=== PATIENT | female | born 1995 | race Two or more races ===

== ENCOUNTER 2018-03-31 09:54 | Emergency (ER) | payer SELFPAY ==
[2018-03-31 10:00] VITALS: BP 122/70
--- NOTE | 2018-03-31 10:43 | ER Document Report ---
ED Eye Complaint - General Chief Complaint: Redness of Eye Stated Complaint: EYE IRRITATION Time Seen by Provider: 03/31/18 10:01 Mode of Arrival: Ambulatory Information source: Patient Notes: Patient is a 23-year-old female comes in emergency room complaining of left eye tearing swelling of the upper lid. Patient states it started 4 days ago the first day she thought she had just pinkeye the second day the lid started to swell and turn red and third day the swelling got more prominent and this morning when she woke up the eye was swollen it closed shut and matted together. Had a yellowish discharge to that that time. Currently there is a clear discharge coming out of the eye. She denies any visual changes she denies any other medical problems her last menstrual period was a month ago when she is on the IUD. She smokes cigarettes occasionally. TRAVEL OUTSIDE OF THE [place] IN LAST 30 DAYS: No - HPI Onset: Other - 4 days ago Eye location: Left Injury: No Occurred at: Home Severity: Moderate Pain Level: 3 Associated symptoms: Itching, Pain, Redness, Matting, Eyelid swelling. denies: Photophobia, Foreign body sensation, Blurred vision, Double vision, Decreased vision, Loss of vision - Related Data Allergies/Adverse Reactions: No Known Allergies Allergy (Unverified 03/31/18 09:56) Past Medical History - General Information source: Patient - Social History Smoking Status: Current Some Day Smoker Cigarette use (# per day): Yes - They Chew tobacco use (# tins/day): No Smoking Education Provided: Yes Frequency of alcohol use: None Drug Abuse: None Lives with: Family Family History: Reviewed & Not Pertinent Patient has suicidal ideation: No Patient has homicidal ideation: No Renal/ Medical History: Denies: Hx Peritoneal Dialysis Review of Systems - Review of Systems Constitutional: No symptoms reported EENT: Eye pain, Eye discharge Cardiovascular: No symptoms reported Respiratory: No symptoms reported Gastrointestinal: No symptoms reported Genitourinary: No symptoms reported Female Genitourinary: No symptoms reported Musculoskeletal: No symptoms reported Skin: No symptoms reported Hematologic/Lymphatic: No symptoms reported Neurological/Psychological: No symptoms reported -: Yes All other systems reviewed and negative Physical Exam - Vital signs Vitals: Temp Pulse Resp BP Pulse Ox 98.9 F 90 20 122/70 97 03/31/18 09:59 03/31/18 09:59 10/25/18 09:59 03/31/18 09:59 03/31/18 09:59 Interpretation: Normal - Notes Notes: PHYSICAL EXAMINATION: GENERAL: Well-appearing, well-nourished and in no acute distress. HEAD: Atraumatic, normocephalic. EYES: Pupils are equal and reactive to light. Further examination shows patient has left upper lid swelling with matting noted on the upper eyelashes. There is also a cellulitis extension of the skin into the bridge of the nose and into the medial canthus area as well. Also extends onto the lateral canthus side where there is just some minor erythema noted approximately 1/4 inch from the lid margin. The lower eye lid is slightly swollen as well. And there is matting noted on the eyelashes of the lower lid. Examination of the conjunctiva shows it to be moderately injected and there is a clear teary kind of discharge coming from the medial canthus on the left eye. Patient's visual acuity is 20/20 in each eye and together. ENT: Nares patent, oropharynx clear without exudates. Moist mucous membranes. NECK: Normal range of motion, supple without lymphadenopathy LUNGS: Breath sounds clear to auscultation bilaterally and equal. No wheezes rales or rhonchi. HEART: Regular rate and rhythm without murmurs ABDOMEN: Soft, nontender, nondistended abdomen. No guarding, no rebound. No masses appreciated. Female : deferred Musculoskeletal: Normal range of motion, no pitting or edema. No cyanosis. NEUROLOGICAL: Cranial nerves grossly intact. Normal speech, normal gait. Normal sensory, motor exams PSYCH: Normal mood, normal affect. SKIN: Warm, Dry, normal turgor, no rashes or lesions noted. Course - Re-evaluation Re-evalutation: 03/31/18 10:43 Patient has no visual problems whatsoever. It appears this is going to be a blepharitis with a cellulitis extension surrounding the upper eyelid and minimally into the surrounding tissue of the bridge of the nose and extension on the medial canthus as well. There is minimal cellulitis on the lower lid or extension from it. The conjunctivae are injected and I believe this would be the second process going on with a bacterial conjunctivitis so we will be treating with an oral antibiotic as well as a ointment. Will probably use erythromycin ointment applied 4 times a day. We will also place her on Bactrim and Diflucan. - Vital Signs Vital signs: Temp Pulse Resp BP Pulse Ox 98.9 F 90 20 122/70 97 03/31/18 09:59 03/31/18 09:59 03/31/18 09:59 03/31/18 09:59 03/31/18 09:59 Discharge - Discharge Clinical Impression: Conjunctivitis Qualifiers: Conjunctivitis type: acute Acute conjunctivitis type: bacterial Laterality: left Qualified Code(s): H10.32 - Unspecified acute conjunctivitis, left eye Blepharitis of eyelid of left eye Qualifiers: Blepharitis type: unspecified type Eyelid: upper Qualified Code(s): H01.004 - Unspecified blepharitis left upper eyelid Disposition: HOME, SELF-CARE Instructions: Antibiotic Therapy ([facility]), Conjunctivitis, Allergic Additional Instructions: Use warm moist compresses 3 or 4 times a day. This is simply a rag warmed up in the sink is warm as you can stand it without burning herself. Applied to the area until it cools down. Then apply your antibiotic ointment. Take all of your oral antibiotics and return to ER for any concerns or problems. Prescriptions: Fluconazole [Diflucan] 150 mg PO ONCE PRN #1 tablet PRN Reason: Sulfamethoxazole/Trimethoprim [Bactrim Ds Tablet] 1 each PO BID #14 tablet Referrals: HARMONY POZO DO [ACTIVE STAFF] - Follow up as needed
[2018-03-31] MEDS ORDERED: ERYTHROMYCIN 0.5% OPH OINTMENT 3.5 GM (ER DISP) OD STA (10:45)
== END 2018-03-31 11:04 | disposition home or self-care (01) ==
LOC: ER 09:54
DX: H10.32 Unspecified acute conjunctivitis, left eye (principal); H01.004 Unspecified blepharitis left upper eyelid; F17.200 Nicotine dependence, unspecified, uncomplicated
CPT/HCPCS: 99282

== ENCOUNTER 2018-07-01 05:24 | Day surgery (SDC) | payer OTHER ==
[2018-06-29 11:30] LABS: HEMATOCRIT 37.8 % (36.0-47.0); HEMOGLOBIN 13.1 g/dL (12.0-15.5); MEAN CORPUSCULAR HEMOGLOBIN 30.1 pg (27.0-33.4); MEAN CORPUSCULAR HGB CONC 34.6 g/dL (32.0-36.0); MEAN CORPUSCULAR VOLUME 87 fl (80-97); PLATELET COUNT 303 10^3/uL (150-450); RED BLOOD COUNT 4.34 10^6/uL (3.72-5.28); RED CELL DISTRIBUTION WIDTH 13.2 % (11.5-14.0)
[2018-06-29 11:34] LABS: APPEARANCE,URINE CLEAR; BILIRUBIN,URINE NEGATIVE (NEGATIVE); COLOR,URINE YELLOW; GLUCOSE, URINE NEGATIVE (NEGATIVE); KETONES,URINE NEGATIVE (NEGATIVE); LEUKOCYTE ESTERASE,URINE NEGATIVE (NEGATIVE); NITRITE,URINE NEGATIVE (NEGATIVE); PROTEIN,URINE NEGATIVE (NEGATIVE); UROBILINOGEN,URINE NEGATIVE mg/dL (<2.0)
[2018-06-29 11:57] LABS: ANION GAP 8 (5-19); BLOOD UREA NITROGEN 15 mg/dL (7-20); CALCIUM 9.7 mg/dL (8.4-10.2); CARBON DIOXIDE 28 mmol/L (22-30); CHLORIDE 103 mmol/L (98-107); GLUCOSE 98 mg/dL (75-110); POTASSIUM 4.3 mmol/L (3.6-5.0); SODIUM 138.8 mmol/L (137-145)
[~2018-07-01 05:24] MED LIST: ACETAMINOPHEN 1,000 MG/100 ML RTUPB IV ONE; CEFAZOLIN 1 GM/D5W RTU 1 GM/50 ML RTUPB IV PRN; FENTANYL CITRATE INJ/PF 100 MCG/2 ML AMPUL ONE; LACTATED RINGERS 1000 ML IV PRN; LIDOCAINE 0.5% INJ-PF (5 MG/ML) 50 ML SDV SUBCUT PRN; LIDOCAINE 2% INJ-PF (20 MG/ML) 10 ML AMPUL ONE; MIDAZOLAM 2 MG/2 ML INJ ONE; ONDANSETRON HCL INJ/PF 4 MG/2 ML SDV ONE; PROPOFOL INJ 200 MG/20 ML VIAL IV ONE
[2018-07-01] MEDS ORDERED: CEFAZOLIN 1 GM/D5W RTU 1 GM/50 ML RTUPB IV ONE (05:33)
[2018-07-01] MEDS ORDERED: FENTANYL CITRATE INJ/PF 100 MCG/2 ML AMPUL IV PRN ×3 (07:30)
[2018-07-01] MEDS ORDERED: MEPERIDINE HCL/PF INJ 25 MG/1 ML DISP.SYRIN IV PRN (07:30)
[2018-07-01] MEDS ORDERED: ONDANSETRON HCL INJ/PF 4 MG/2 ML SDV IV PRN (07:30)
[2018-07-01] MEDS ORDERED: DIPHENHYDRAMINE HCL 50 MG/ML VIAL IV PRN (07:30)
[2018-07-01] MEDS ORDERED: OXYCODONE-ACETAMINOPHEN 5-325 MG TABLET PO PRN ×3 (07:30→08:52)
[2018-07-01] MEDS ORDERED: PROMETHAZINE HCL INJ 25 MG/1 ML VIAL IV PRN ×2 (07:30)
[2018-07-01] MEDS: FENTANYL CITRATE INJ/PF 100 MCG/2 ML AMPUL ONE ×2 (07:51→07:53)
[2018-07-01] MEDS ORDERED: LIDOCAINE 1% INJ-PF (10 MG/ML) 30 ML SDV ONE (08:07)
[2018-07-01] MEDS ORDERED: OXYCODONE-ACETAMINOPHEN 5-325 MG TABLET ONE (08:27)
--- NOTE | 2018-07-01 08:42 | OPERATIVE REPORT E ---
Operative Report NAME: AMARI KRISHNAMURTHY : 1995 AGE: 23Y DATE OF SURGERY: 07/01/2018 ROOM: PREOPERATIVE DIAGNOSIS: Imbedded IUD. POSTOPERATIVE DIAGNOSIS: Imbedded IUD. OPERATION: Hysteroscopic removal of imbedded IUD. SURGEON: CHAVO CHUNG M.D. ANESTHESIA: LMAC, paracervical block. COMPLICATIONS: None. SPECIMENS: Copper T Paragard IUD. FINDINGS: Include the string and the IUD imbedded firmly in the cervix at the isthmic region. PROCEDURE: The patient was taken to the operating room and placed in the modified lithotomy position. Adequate anesthesia was ascertained, paracervical block placed. The cervix was dilated to admit the operative hysteroscope. Using a laparoscopic grasping device in conjunction with the hysteroscope and immediately adjacent to the scope, the mid portion of the visible IUD was grasped and brought out with the IUD flexed in the center portion intact. Rehysteroscopy demonstrated a markedly retroflexed uterus. Upper portions of the uterine cavity were not readily identified. The area of the IUD site was intact and dry. Surgical time out was performed preop. The patient had voided preop. All sponge, needle, and instrument counts were correct. DICTATING PHYSICIAN: CHAVO CHUNG M.D. [id number] PHY#: [id number] ID: [id number] JOB#: [id number] ACCT: [id number] cc:CHAVO CHUNG M.D. >
[2018-07-01] MEDS ORDERED: IBUPROFEN 800 MG TABLET PO PRN (08:52)
[2018-07-01] MEDS ORDERED: PROMETHAZINE HCL INJ 25 MG/1 ML VIAL IM PRN (08:53)
[2018-07-01 09:27] VITALS: BP 107/70
== END 2018-07-01 09:20 | disposition home or self-care (01) ==
LOC: OROUT 05:24
PROVIDERS: ATTEND Specialist
DX: T83.32XA Displacement of intrauterine contraceptive device, initial encounter (principal); Y76.3 Surgical instruments, materials and obstetric and gynecological devices (including sutures) associated with adverse incidents
CPT/HCPCS: 86900; 86901; 36415; 86850; 85027; 81025; 80048; 81001; 58562; J2250; J0690; J3010 ×2; J3490 ×2; J2405; J2704; J0131; 952

== ENCOUNTER 2019-03-03 14:11 | Outpatient (CLI) | payer OTHER ==
[2019-03-03 15:41] LABS: ABSOLUTE EOSINOPHILS # (AUTO) 0.2 10^3/uL (0.0-0.6); ABSOLUTE LYMPHOCYTES (AUTO) 1.4 10^3/uL (0.5-4.7); ABSOLUTE MONOCYTES (AUTO) 0.5 10^3/uL (0.1-1.4); ABSOLUTE NEUT (AUTO) 5.3 10^3/uL (1.7-8.2); BASOPHILS % (AUTO) 0.1 % (0-2); EOSINOPHILS % (AUTO) 2.1 % (0-6); HEMATOCRIT 31.8 % (36.0-47.0); HEMOGLOBIN 10.8 g/dL (12.0-15.5); LYMPHOCYTES % (AUTO) 19.3 % (13-45); MEAN CORPUSCULAR HEMOGLOBIN 28.8 pg (27.0-33.4); MEAN CORPUSCULAR VOLUME 85 fl (80-97); MONOCYTES % (AUTO) 6.2 % (3-13); PLATELET COUNT 322 10^3/uL (150-450); RED BLOOD COUNT 3.76 10^6/uL (3.72-5.28); RED CELL DISTRIBUTION WIDTH 13.4 % (11.5-14.0); SEGMENTED NEUTROPHILS % (AUTO) 72.3 % (42-78); TOTAL CELLS COUNTED % (AUTO) 100 %; WHITE BLOOD COUNT 7.4 10^3/uL (4.0-10.5)
[2019-03-03 15:44] LABS: AMORPHOUS SEDIMENT,URINE TRACE /HPF; APPEARANCE,URINE CLOUDY; BILIRUBIN,URINE NEGATIVE (NEGATIVE); COLOR,URINE YELLOW; GLUCOSE, URINE NEGATIVE (NEGATIVE); KETONES,URINE NEGATIVE (NEGATIVE); LEUKOCYTE ESTERASE,URINE SMALL (NEGATIVE); NITRITE,URINE NEGATIVE (NEGATIVE); PROTEIN,URINE NEGATIVE (NEGATIVE); URINE SPECIFIC GRAVITY 1.019
[2019-03-03 15:57] LABS: URINE AMPHETAMINES SCREEN NEGATIVE; URINE BARBITURATES SCREEN NEGATIVE; URINE BENZODIAZEPINES SCREEN NEGATIVE; URINE COCAINE SCREEN NEGATIVE; URINE MARIJUANA (THC) SCREEN NEGATIVE; URINE METHADONE SCREEN NEGATIVE; URINE PHENCYCLIDINE SCREEN NEGATIVE
--- NOTE | 2019-03-03 16:13 | RADIOLOGY REPORT (SQ) ---
EXAM DESCRIPTION: U/S OB 14+ TRNABD 1GES W/O DOP COMPLETED DATE/TIME: 03/03/2019 4:02 pm REASON FOR STUDY: No care labs COMPARISON: None. TECHNIQUE: Static and Dynamic grayscale imaging performed of gravid uterus using transabdominal appr oac. Additional selected color Doppler and spectral images recorded. All stored on PACS. LIMITATIONS: None. FINDINGS: FETUSES SEEN:1 EGA: 30 week 3 day. Calculated using BPD,FL,HC,AC documented on images. Clinical age 32 week 0 day. JESSICA: 05/09/2019. EFW: 1466 grams PERCENTILE: 20%. CANDI: 8.3 cm. PLACENTA: Anterior. GRADE: I PRESENTATION: Cephalic. ANATOMY: HEART RATE: 136 beats per minute. FOUR CHAMBER HEART: Visualized. THREE VESSEL CORD: Yes. CORD INSERTION: Visualized. KIDNEYS AND BLADDER: Visualized. Appear normal. STOMACH: Visualized. Appears normal. SPINE: Normal as visualized. BRAIN AND LATERAL VENTRICLES: Lateral ventricles not seen. Normal brain as visualized. OTHER: No other significant finding. MATERNAL ADNEXA: Maternal ovaries not visualized. CERVICAL LENGTH: 3.0 cm. Closed. OTHER: No other significant finding. IMPRESSION: LIVING INTRAUTERINE . ESTIMATED GESTATIONAL AGE 30 WEEK 3 DAY. NO VISUALIZED ANOMALIES. THE AMNIOTIC FLUID INDEX OF 8.3 CM IS LOW. Trimester of : Third trimester - 28 weeks to delivery. TECHNICAL DOCUMENTATION: JOB ID: [id number] [employer]- All Rights Reserved Reading location - IP/workstation name: [email or web address]
[2019-03-03 17:01] LABS: CHLAM PCR NOT DETECTED (NOT DETECT)
[2019-03-05 07:37] LABS: HEPATITIS C VIRUS AB <0.1 s/co ratio (0.0-0.9)
[2019-03-05 18:18] LABS: HEPATITS B SURFACE ANTIGEN Negative (Negative)
== END 2019-03-03 16:49 | disposition home or self-care (01) ==
LOC: LC 14:11
PROVIDERS: ATTEND Obstetrics & Gynecology
PROC: 4A1HXCZ Monitoring of Products of Conception, Cardiac Rate, External Approach (ICD-10-PCS; principal; 2019-03-03)
DX: O26.893 Other specified pregnancy related conditions, third trimester (principal); M54.9 Dorsalgia, unspecified; Z3A.31 31 weeks gestation of pregnancy
CPT/HCPCS: 36415; 76805; 80307; 81001; 85025; 86592; 86701; 86762; 86803; 86804; 86850; 86900; 86901; 87340; 87491; 87591